=== PATIENT | female | born 1990 | race Caucasian/White ===

== ENCOUNTER 2018-05-15 20:06 | Emergency (ER) | payer MEDICAID ==
[2018-05-15 20:19] VITALS: BP 122/72
--- NOTE | 2018-05-15 20:30 | EDPHY ---
H & P Stated Complaint: L BIG TOE INJ Time Seen by Provider: 05/15/18 20:26 HPI/ROS: CHIEF COMPLAINT: Left toe pain HISTORY OF PRESENT ILLNESS: Patient is a 28-year-old female who comes to the emergency department complaining of a crush injury to her left great toe. She states that a metal shelf fell on top of it just prior to arrival. She has bruising underneath her toenail in pain. No deformity. No swelling of the toe itself. Other pain or injury. Severity: Severe Modifying factors: Worse with ambulation REVIEW OF SYSTEMS: Constitutional: denies: chills, fever, recent illness, recent injury EENTM: denies: blurred vision, double vision, nose congestion Respiratory: denies: cough, shortness of breath Cardiac: denies: chest pain, irregular heart rate, lightheadedness, palpitations Gastrointestinal/Abdominal: denies: abdominal pain, diarrhea, nausea, vomiting, blood streaked stools Genitourinary: denies: dysuria, frequency, hematuria, pain Musculoskeletal: See HPI Skin: denies: lesions, rash, jaundice, bruising Neurological: denies: headache, numbness, paresthesia, tingling, dizziness, weakness Hematologic/Lymphatic: denies: blood clots, easy bleeding, easy bruising Immunologic/allergic: denies: HIV/AIDS, transplant EXAM: GENERAL: Well-appearing, well-nourished and in no acute distress. HEAD: Atraumatic, normocephalic. EYES: Pupils equal round and reactive to light, extraocular movements intact, sclera anicteric, conjunctiva are normal. ENT: TMs normal, nares patent, oropharynx clear without exudates. Moist mucous membranes. NECK: Normal range of motion, supple without lymphadenopathy or JVD. LUNGS: Breath sounds clear to auscultation bilaterally and equal. No wheezes rales or rhonchi. HEART: Regular rate and rhythm without murmurs, rubs or gallops. ABDOMEN: Soft, nontender, normoactive bowel sounds. No guarding, no rebound. No masses appreciated. BACK: No CVA tenderness, no spinal tenderness, step-offs or deformities EXTREMITIES: Subungual hematoma left great toe, no swelling or deformity otherwise. No laceration. NEUROLOGICAL: Cranial nerves II through XII grossly intact. Normal speech, normal gait. 5/5 strength, normal movement in all extremities, normal sensation , normal reflexes PSYCH: Normal mood, normal affect. SKIN: Warm, dry, normal turgor, no visible rashes or lesions. Source: Patient Exam Limitations: No limitations - Personal History LMP (Females 10-55): 1-7 Days Ago Current Tetanus Diphtheria and Acellular Pertussis (TDAP): Yes - Medical/Surgical History Hx Asthma: No Hx Chronic Respiratory Disease: No Hx Diabetes: No Hx Cardiac Disease: No Hx Renal Disease: No Hx Cirrhosis: No Hx Alcoholism: No Hx HIV/AIDS: No Hx Splenectomy or Spleen Trauma: No Other PMH: R HIP SX, APPY, OVARIAN CYST SX - Social History Smoking Status: Heavy smoker Constitutional: Initial Vital Signs Temperature (C) 36.6 C 05/15/18 20:16 Heart Rate 103 H 05/15/18 20:16 Respiratory Rate 16 05/15/18 20:16 Blood Pressure 122/72 H 05/15/18 20:16 O2 Sat (%) 97 05/15/18 20:16 O2 Delivery Mode Room Air Allergies/Adverse Reactions: No Known Allergies Allergy (Verified 01/31/13 05:54) Home Medications: Medication Instructions Recorded Gabapentin [Neurontin 300 MG (RX)] 300 mg PO HS 12/24/12 Lamotrigine 05/15/18 Paxil 05/15/18 Wellbutrin 100mg (*) 05/15/18 Medical Decision Making - Diagnostics Imaging: Discussed imaging studies w/ callisthenics instructor Radiologist Procedures: Procedure: I was able to trephinate the patient's left great toenail easily with the hot iron. She tolerated the procedure well but was quite anxious. Blood was drained and she felt improved. ED Course/Re-evaluation: Patient tolerated procedure well. Her toe is bandaged. She is relieved that the x-ray shows no fractures. She is requesting a postop shoe for ambulation. We discussed follow-up as well as indications for returning. Differential Diagnosis: Partial list of the Differential diagnosis considered include but were not limited to; subungual hematoma, fracture, crush injury and although unlikely based on the history and physical exam, I also considered laceration, infection. I discussed these differential diagnoses and the plan with the patient as well as the usual and expected course. The patient understands that the diagnosis is provisional and that in medicine we are not always correct and that further workup is often warranted. Usual and customary warnings were given. All of the patient's questions were answered. The patient was instructed to return to the emergency department should the symptoms at all worsen or return, otherwise to followup with the physician as we discussed. Departure - Departure Disposition: Home, Routine, Self-Care Clinical Impression: Subungual hematoma of great toe of left foot Qualifiers: Encounter type: initial encounter Qualified Code(s): S90.212A - Contusion of left great toe with damage to nail, initial encounter Condition: Fair Instructions: Subungual Hematoma (ED) Referrals: JB BLANCAS [Primary Care Provider] - As per Instructions Stand Alone Forms: Work Excuse
== END 2018-05-15 21:02 | disposition home or self-care (01) ==
PROC: 0H9NXZZ Drainage of Left Foot Skin, External Approach (ICD-10-PCS; principal; 2018-05-15)
DX: S90.212A Contusion of left great toe with damage to nail, initial encounter (principal); W20.8XXA Other cause of strike by thrown, projected or falling object, initial encounter; F17.200 Nicotine dependence, unspecified, uncomplicated
CPT/HCPCS: L4386

== ENCOUNTER 2019-02-21 10:07 | Emergency (ER) | payer MEDICAID | END 2019-02-21 12:49 | disposition home or self-care (01) ==